=== PATIENT | male | born 1980 | race Caucasian/White ===

== ENCOUNTER → 2021-02-12 | Day surgery (SDC) | payer BC, OTHER ==
[~2021-02-12] VITALS: Ht 195.6 cm; Wt 131.5 kg
[~2021-02-12] MED LIST: ASA81BEC PO; BUSPIRONE HCL15 MG PO; CLONAZEPAM 1 MG1 M1 PO; LIPITOR 40 MG T40 M1 PO; LOSARTAN POTASS50 MG PO
[2021-02-12 13:12] VITALS: BP 105/73
[2021-02-12 14:32] VITALS: BP 105/73
--- NOTE | 2021-02-12 15:58 | EKG ---
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
--- NOTE | 2021-02-12 16:22 | O ---
[address] [address] OPERATIVE REPORT Name: DHIRAJ HAAS GLENN Room #: REG [facility].#: [id number] Admission: 02/12/21 Attend Phys: Bogdan Arroyo MD Discharge: Date of : 84 Report #: [id number] THIS REPORT FOR: cc: TREE HONEYCUTT Physician not on staff Bogdan Arroyo MD ~ DATE OF SERVICE: 02/12/2021 SERVICE: Orthopedics. FACILITY: [facility]. SURGEON: Bogdan Arroyo MD [employer] SUPERVISOR: Lynda Vaughn NP PREOPERATIVE DIAGNOSES: 1. Right knee pain. 2. Right knee medial meniscus tear. POSTOPERATIVE DIAGNOSES: 1. Right knee pain. 2. Right knee medial meniscus tear. 3. Right knee medial plica syndrome. 4. Right knee synovitis. PROCEDURES: 1. Right knee arthroscopic partial medial meniscectomy. 2. Right knee medial plica resection. COMPLICATIONS: None. DRAINS: None. SPECIMENS: None. ANESTHESIA: General. FINDINGS: 1. Intact patellofemoral compartment and lateral compartment. 2. Intact ACL. 3. Partial thickness stellate stable articular cartilage lesion of the medial femoral condyle without any full thickness lesions or unstable flap tears, requiring no surgical intervention. 4. Complex posterior horn medial meniscus tear requiring resection of approximately 30% meniscal volume. [address] [address] OPERATIVE REPORT Name: DHIRAJ HAAS Room #: REG [facility]#: [id number] Admission: 02/12/21 Attend Phys: Bogdan Arroyo MD Discharge: Date of : 84 Report #: [id number] HISTORY: The patient is a 40-year-old gentleman, history nearly a year's worth of persistent progressive right medial knee pain and mechanical symptoms. He had failed conservative measures including rest, activity modifications, oral medicines, modalities, etc. He had an MRI which showed an unstable medial meniscus tear consistent with his physical examination, which had a positive medial Nicol's as well as medial joint line tenderness. Risks, benefits, alternatives and indications for surgery discussed with him in detail and he gave full informed consent and wished to move forward with surgical treatment. Risks include but not limited to pain, bleeding, infection, injury to nerves or blood vessels, persistent pain despite surgical intervention, failure of any repairs, progression of preexisting chondral injury, stiffness, need for further surgery as well as complications related to anesthesia. Despite the risks, he wished to proceed. PROCEDURE IN DETAIL: After right lower extremity was correctly identified in the preoperative holding area as the operative extremity, the patient was taken to the operating room where general anesthesia was induced without complications. He was padded appropriately. Prophylactic antibiotics were administered in appropriate time. Tourniquet was applied to right leg. Right lower extremity was then prepped and draped in standard sterile fashion. Timeout procedure performed. Esmarch was used, tourniquet inflated to 250 mmHg. Standard anterolateral portal was established. An anteromedial working portal was created under direct arthroscopic visualization. The shaver was used to perform a synovectomy and resection of the hypertrophic retropatellar tendon fat pad. The patellofemoral joint was found to be normal. The anterior aspect of the medial femoral condyle was normal as was the medial tibia. The weightbearing portion of the more posterior part of the medial femoral condyle had a stellate shaped partial thickness articular cartilage lesion that did not have any unstable components. This was less than 50% thickness lesion. There was an obvious unstable posterior horn medial meniscus tear, which was treated with partial meniscectomy with a biter and the shaver. There was an unstable flap tear component that could be demonstrated to be unstable with rotation. After the partial meniscectomy was completed, the meniscal debris was lavaged out of the knee. Attention was turned towards the lateral compartment. The leg was placed in the [id number] position. The lateral compartment was healthy without any pathology. The shaver was used to perform a synovectomy around the posterior horn of the lateral meniscus, where the only pathology was noted. With the scope in the anterolateral portal, the medial plica could be well visualized. This was resected with a biter and the shaver to a stable margin that would no longer cause the anteromedial chondromalacia where the medial plica was rubbing on the anteromedial femur. After all chondroplasty and plica resection made complete as well as meniscal debridement and all meniscal debris had been lavaged out of [address] [address] OPERATIVE REPORT Name: DHIRAJ HAAS Room #: [facility] [place]#: [id number] Admission: 02/12/21 Attend Phys: Bogdan Arroyo MD Discharge: Date of : 84 Report #: [id number] the knee, the arthroscopic effusion was drained. Instruments were removed. Portal sites were closed. Local anesthetic was placed in the soft tissues. Sterile dressing was applied followed by compression stocking. The patient was awakened from anesthesia and taken to recovery room in stable condition. No complications. All counts were correct. <ELECTRONICALLY SIGNED> By: Bogdan Arroyo MD 02/12/21 1622 1320 1410 Bogdan Arroyo MD /nt
== END | disposition home or self-care (01) ==
LOC: OR 11:38
PROVIDERS: ATTEND Orthopaedic Surgery Sports Medicine
DX: M25.561 Pain in right knee (principal); M67.51 Plica syndrome, right knee; M23.221 Derangement of posterior horn of medial meniscus due to old tear or injury, right knee; M65.861 Other synovitis and tenosynovitis, right lower leg; I10 Essential (primary) hypertension; E78.5 Hyperlipidemia, unspecified; F32.9 Major depressive disorder, single episode, unspecified; F41.9 Anxiety disorder, unspecified; F17.210 Nicotine dependence, cigarettes, uncomplicated; G47.30 Sleep apnea, unspecified; Z98.890 Other specified postprocedural states; Z79.899 Other long term (current) drug therapy; Z87.442 Personal history of urinary calculi
CPT/HCPCS: 50010; 50101; 50405; 56527; 57103; 57180; 58589; 58680; 62110; 62900; 70005